=== PATIENT | female | born 1990 | race Caucasian/White ===

== ENCOUNTER 2018-06-26 08:46 | Emergency (ER) | payer MEDICAID, SELFPAY | END 2018-06-26 09:21 | disposition home or self-care (01) | LOC: BURERS 08:46 | DX: O20.0 Threatened abortion (principal); O99.331 Smoking (tobacco) complicating pregnancy, first trimester; F17.210 Nicotine dependence, cigarettes, uncomplicated; Z3A.01 Less than 8 weeks gestation of pregnancy | CPT/HCPCS: 99283 ==

== ENCOUNTER 2023-10-11 20:48 | Emergency (ER) | payer OTHER, SELFPAY ==
[2023-10-11] MEDS ORDERED: Bupivacaine 0.5% 10 ML VIAL ONE (21:50)
[2023-10-11] MEDS ORDERED: Penicillin V Potassium 250 MG TAB ONE (21:52)
== END 2023-10-11 22:08 | disposition home or self-care (01) ==
LOC: BURERS 20:48
DX: K08.89 Other specified disorders of teeth and supporting structures (principal); K04.7 Periapical abscess without sinus; L03.211 Cellulitis of face; F17.210 Nicotine dependence, cigarettes, uncomplicated
CPT/HCPCS: 99283; J3490

== ENCOUNTER 2024-04-04 23:17 | Emergency (ER) | payer SELFPAY | END 2024-04-05 00:03 | disposition home or self-care (01) | LOC: BURERS 23:17 | DX: L02.216 Cutaneous abscess of umbilicus (principal); F17.210 Nicotine dependence, cigarettes, uncomplicated | CPT/HCPCS: 10060 ==

== ENCOUNTER 2024-04-08 16:08 | Emergency (ER) | payer SELFPAY ==
[2024-04-08] MEDS ORDERED: Sulfameth/Trimethoprim DS 800-160mg TAB ONE (16:23)
== END 2024-04-08 16:29 | disposition home or self-care (01) ==
LOC: BURERS 16:08
DX: Z48.00 Encounter for change or removal of nonsurgical wound dressing (principal); F17.210 Nicotine dependence, cigarettes, uncomplicated
CPT/HCPCS: 99282